=== PATIENT | male | born 1995 | race Caucasian/White ===

== ENCOUNTER 2017-04-03 15:31 | Emergency (ER) | payer OTHER ==
--- NOTE | 2017-04-03 19:02 | DIAGNOSTIC IMAGING REPORT ---
PROCEDURE: CT ABD/PELVIS WITH CONTRAST INDICATION: Hematemesis. Abdominal pain. Nausea and vomiting. Elevated white blood count 90 14,400). TECHNIQUE: 100 ml of Isovue 300 were injected intravenously and axial images were obtained of the entire abdomen and pelvis with sagittal and coronal reformations. COMPARISON: None. FINDINGS: ABDOMEN: Gallbladder is partially contracted with moderate to large amount of ingested material in the stomach. Liver, spleen, pancreas, kidneys, and aorta are normal. Bowel pattern is normal. Appendix is not clearly identified, but no evidence of inflammatory process. PELVIS: Pelvic structures are normal. No evidence of free fluid. IMPRESSION: 1. Moderate to large amount of ingested material in the stomach 2. Otherwise negative CT abdomen and pelvis. 3. Findings discussed with Dr. Raven Perez. All CT scans at this facility use dose modulation, iterative reconstruction, and/or weight-based dosing when appropriate to reduce radiation dose to as low as reasonably achievable.
--- NOTE | 2017-04-03 19:08 | ED NURSING NOTES ---
Clinical Report - Nurses [facility] [address] [place] [address] 04/03/2017 15:33 Patient: AKIKO CRAVEN II TRIAGE Triage time 1540. Acuity: LEVEL 3. Chief Complaint: ABDOMINAL PAIN, NAUSEA and VOMITING and (abd pain x 6 months, vomiting x 1 month- increased off and on over last 233k. has lost 25 pounds in 1 month.). 15:40. --15:51 Fifi Mercer R.N. 15:40 04/03/17. BP: 99/59. HR: 76. RR: 16. O2 saturation: 98%. Temp: 98.2 F. Pain level now: 9/10. Additional comments: 99/59 flat, 92/58 sitting, 90/54 standing / 76 flat, 86 sitting , 91 standing . --15:51 Fifi Mercer R.N. Weight: 48.5 kg stated. Height/Length: 69 inches Per Patient. BMI: 15.8. --15:51 Fifi Mercer R.N. Medications Dansatron yesterday. --15:47 Fifi Mercer R.N. None. --15:47 Fifi Mercer R.N. Allergies Penicillins. --15:47 Fifi Mercer R.N. History Arrived by private vehicle. Historian: patient. Accompanied by friend. No primary care physician. ( has seen bright red blood, and maroon colored blood with clots. has been feeling dizzy). He has had nausea and vomiting. He has had abdominal pain (low abd pain). ( denies bloody or black stools). SURGERY HX: No history of previous surgery. SOCIAL HX: Light tobacco smoker (cigarette)- less than 1/2 a pack per day. Occasional alcohol use. History of drug use: marijuana. --15:51 Fifi Mercer R.N. PROBLEMS: Back Pain. --15:46 Fifi Mercer R.N. ADDITIONAL SURGERIES: no known surgeries. Interventions ID band on patient. To treatment room. --15:51 Fifi Mercer R.N. PHYSICAL ASSESSMENT 15:40. Ambulatory to room. Patient gowned. GENERAL / NEURO / PSYCH: Alert. Oriented X 4. Appears in no acute distress. Appears anxious. RESPIRATORY: Respirations not labored. CVS: Capillary refill less than 2 seconds. GI / : The patient has had nausea. Emesis noted. Abdominal tenderness. No diarrhea. SKIN: Skin is warm and dry. --15:52 Fifi Mercer R.N. NURSING PROGRESS NOTES 15:40. Patient gowned. Head of bed elevated. Reassurance given. Patient identifiers checked. Call light placed in reach. Side rails up. Bed placed in lowest position. Patient ready for evaluation- chart flagged. --15:51 Fifi Mercer R.N. 16:30 04/03/2017 Site #1 started via IV in the right forearm with an 18g angiocath, with aseptic technique and good blood return; one attempt. Blood drawn: rainbow set. Labeled in the presence of the patient and sent to the lab. Saline lock flushed with 10 mL saline. --16:41 Fifi Mercer R.N. 16:30 04/03/2017 Started bag #1 1000 mL IV Fluids IV NS (Saline); at 1000 mL/hr over 1 hour(s) via site #1 via IV pump. --16:41 Fifi Mercer R.N. 16:31 04/03/2017 Dilaudid (HYDROmorphone HCl PF) IVP 0.5 mg given over 1 minute(s) via site #1. Sedative warning given to the patient. IV patency established. IV site checked: no pain, redness, or swelling. IV flushed thoroughly pre- and post-medication administration. IVP given by RN. --16:42 Fifi Mercer R.N. 16:33 04/03/2017 PROTONIX (Pantoprazole Sodium) IVP 40 mg given over 2 minute(s) via site #1. IV patency established. IV site checked: no pain, redness, or swelling. IV flushed thoroughly pre- and post-medication administration. IVP given by RN. --16:42 Fifi Mercer R.N. 16:34 04/03/2017 Zofran (Ondansetron HCl) IVP 4 mg given over 1 minute(s) via site #1. IV patency established. IV site checked: no pain, redness, or swelling. IV flushed thoroughly pre- and post-medication administration. IVP given by RN. --16:43 Fifi Mercer R.N. 17:25 04/03/2017 IV Fluids IV NS Bag Change: bag #1 infused. Total amount infused: 1000. STARTED bag #2 at 1000 mL/hr via IV pump. IV patency established. IV site checked: no pain, redness, or swelling. IV flushed thoroughly. --17:38 Fifi Mercer R.N. 17:28 04/03/2017 Zofran (Ondansetron HCl) IVP 4 mg given over 1 minute(s) via site #1. IV patency established. IV site checked: no pain, redness, or swelling. IV flushed thoroughly pre- and post-medication administration. IVP given by RN. --17:33 Fifi Mercer R.N. 16:30 IV started, bloods to lab , meds given. --17:34 Fifi Mercer R.N. 17:00 Pt resting quietly, girlfriend at bedside. --17:35 Fifi Mercer R.N. 17:20 Pt states nausea getting worse,asking for additional meds. --17:35 Fifi Mercer R.N. 17:29. Patient transported to [place] by stretcher with tech. --17:39 Fifi Mercer R.N. 17:50. Patient returned from CT by stretcher with tech. ([id number]). --18:03 Lulu Hernandez R.N. 18:03 04/03/17. BP: 96/58. HR: 87. RR: 18. O2 saturation: 100%. Pain level now 8/10. --18:04 Lulu Hernandez R.N. 18:45 04/03/17. BP: 98/56. HR: 89. RR: 16. O2 saturation: 99%. Temp: deferred. Pain level now: 8/10. Additional comments: ambulated to bathroom, steady on feet but states he still feels slightly dizzy . --18:57 Fifi Mercer R.N. --18:57 Fifi Mercer R.N. 18:49 04/03/2017 IV Fluids IV NS Discontinued: bag #2 infused. Total amount infused: 1000 mL. IV patency established. IV site checked: no pain, redness, or swelling. IV flushed thoroughly. (converted to saline lock). --18:59 Fifi Mercer R.N. 19:20 04/03/2017 Site #1 removed upon discharge. Bandage applied. --19:52 Fifi Mercer R.N. DISPOSITION / DISCHARGE 19:30. Condition at departure: improved and stable. No learning barriers present. Discharge instructions provided and reviewed with the patient. Reviewed medication(s) (protonix). Reviewed referrals (PCP tomorrow, for referral for EGD). Patient verbalized understanding. Written instructions provided in Somali. The patient was discharged home and accompanied by diplomatic interpreter. He left the Emergency Department ambulatory and via private vehicle. Swimming Pool Serviceperson driving. --19:52 Fifi Mercer R.N. 19:30 04/03/17. BP: 102/46. HR: 81. RR: 18. O2 saturation: 98%. Temp: deferred. Pain level now: 8/10. --19:52 Fifi Mercer R.N. Locked/Released at 04/03/2017 19:53 by Fifi Mercer R.N.
--- NOTE | 2017-04-03 19:08 | ED CLINICAL REPORT ---
Clinical Report - Physicians/Mid Levels [facility] [address] [place] [address] 04/03/2017 15:33 Patient: AKIKO CRAVEN II Time Seen: 15:37. Arrived- By private vehicle. Historian- patient. HISTORY OF PRESENT ILLNESS Chief Complaint: VOMITING. This started about 6 months ago, but worse over the past several weeks. Hematemesis started today. It is gone now. No recent travel. He has had nausea, vomiting, abdominal pain and constipation. He has had diarrhea (alternates with constipation). No black stools, bloody stools, flank pain, history of possible bad food exposure or known contact with a sick individual. Has not recently been camping or on antibiotics. The illness is described as moderate. Similar symptoms previously: ( atient states the symptoms have been going on since September of this year. However, his symptoms have gotten worse over the last month, and hematemesis just started today.). Recent medical care: ( Patient was seen about one month ago at [facility] for coughing up blood. He should states that a chest x-ray and blood work were done, and patient was then told to see his primary care physician. Patient states he does not have a primary care physician yet, because the physician he was referred to from [facility] is down in the [place] area and patient was appeared. He states he has no history of ulcers and has never had an endoscopy. He is not seen any other physician for the abdominal symptoms he has hadsince September.). Not recently seen/assessed. REVIEW OF SYSTEMS No fever, muscle aches, difficulty with urination, dizziness or sore throat. No cough, chest pain, difficulty breathing, excessive urination or skin rash. No jaundice, back pain, fainting episodes or blurred vision. The patient has had a headache. All systems otherwise negative, except as recorded above. PAST HISTORY Problems: Back Pain. Additional Surgeries: no known surgeries. Medications: None. Dansatron yesterday. Allergies: Penicillins. SOCIAL HISTORY Smoker- current status unknown. History of drug use: marijuana. No alcohol use. ADDITIONAL NOTES The nursing notes have been reviewed. PHYSICAL EXAM Vital Signs: 04/03/2017 15:40 BP: 99/59. HR: 76. RR: 16. O2 saturation: 98%. Temp: 98.2 F. Pain level now: 06/05. Have been reviewed. Appearance: Alert. Oriented X3. No acute distress. Eyes: Pupils equal, round and reactive to light. Eyes normal inspection. ENT: Nose normal. Neck: Normal inspection. CVS: Normal heart rate and rhythm. Heart sounds normal. Pulses normal. Respiratory: No respiratory distress. Breath sounds normal. Abdomen: Soft. Moderate tenderness in the epigastric area. No guarding or rebound tenderness. Back: Normal inspection. Skin: Skin warm and dry. Normal skin color. No rash. Normal skin turgor. Extremities: Extremities exhibit normal ROM. No lower extremity edema. Neuro: (grossly intact.). LABS, X-RAYS, AND EKG Abdominal CT: Normal study. Normal aorta. Normal liver, spleen, pancreas, gallbladder and adrenals. Normal kidneys. Bladder normal. Appendix normal. No mass. No free fluid. No bony lesion. No diverticulitis. Study type: abdomen and pelvis. Abdominal CT performed with IV contrast. The study was independently viewed by me, interpreted by the radiologist and contemporaneously by me and discussed with the radiologist. Prior studies were not available for comparison. Laboratory Tests: CBC w Diff: (URIAH: 04/03/2017 16:15) ( MsgRcvd 04/03/2017 17:04) Final results Test Result Flag Units (Reference) WHITE BLOOD COUNT 14.4 H K/uL (4.5-11.5) RED BLOOD COUNT 4.89 M/uL (4.50-5.90) HEMOGLOBIN 14.4 gm/dL (13.5-17.5) HEMATOCRIT 42.8 % (41.0-53.0) MEAN CELL VOLUME 88 fL (80-100) MEAN CORPUSCULAR HGB 30 pg (26-34) MEAN CORPUSCULAR HGB CONC 34 g/dL (31-37) RED CELL DISTRIBUTION WIDTH 12.7 % (11.6-14.8) PLATELET COUNT 255 K/uL (150-400) NEUTROPHIL % 85.6 H % (50-75) LYMPH % 8.1 L % (25-40) MONO % 5.1 % (3-14) EOSINOPHIL % 1.0 % (0-4) BASOPHIL % 0.2 % (0-2) PT with INR: (URIAH: 04/03/2017 16:15) ( [facility] 04/03/2017 16:48) Final results Test Result Flag Units (Reference) INR 1.0 (0.8-1.2) Low Intensity Therapy: INR 1.5-2.0 PT range 18.5-23.1Mod.Intensity Therapy: INR 2.0-3.0 PT range 23.1-31.5High Intensity Therapy: INR 2.5-3.5 PT range 27.4-35.5High Intensity Therapy 2: INR 3.0-4.0 PT range 31.5-39.3 CMP: (URIAH: 04/03/2017 16:15) ( [facility] 04/03/2017 17:01) Final results Test Result Flag Units (Reference) GLUCOSE 99 mg/dL (70-110) BUN 18 mg/dL (7-18) CREATININE 0.9 mg/dL (0.6-1.3) Estimated GFR >60 mL/min Estimated GFR- >60 mL/min Note: Persistent reduction over 3 months in eGFR<60 mL/min/1.73 m2 defines CKD. Patients with eGFR values>=60 mL/min/1.73 m2 may also have CKD if evidence ofpersistent proteinuria. Additional information may be foundat [email or web address]. SODIUM 142 mmol/L (136-145) POTASSIUM 4.0 mmol/L (3.5-5.1) CHLORIDE 103 mmol/L (98-107) CARBON DIOXIDE 27 mmol/L (21-32) CALCIUM 8.9 mg/dL (8.5-10.1) TOTAL PROTEIN 7.0 g/dL (6.4-8.2) ALBUMIN 4.0 g/dL (3.3-5.0) BILIRUBIN, TOTAL 0.3 mg/dL (0.0-1.0) ALKALINE PHOSPHATASE 47 U/L (46-116) AST (SGOT) 15 U/L (15-37) ALT (SGPT) 25 U/L (12-78) LIPASE 177 U/L (73-393) AMYLASE 54 U/L (25-115) . Pulse Oximetry: 04/03/2017 15:40 O2 saturation: 98%. (FIO2 - room air). Interpretation: normal. PROGRESS AND PROCEDURES Course of Care: Patient was given a liter of IV fluid, as well as a half milligram of Dilaudid for his headache, and a dose of Protonix. Patient at the time of my examination stated that he did not have any nausea currently. Patient was worked up with lab for studies and a CT scan, both of which were unremarkable. I did not find an emergent condition and I felt patient was stable for discharge home with outpatient follow-up. I did emphasize to the patient the importance of seeing his primary doctor to discuss getting an endoscopy. He is being given a prescription for Protonix. Patient and friend counseled in person regarding the patient's stable condition, test results, diagnosis and need for follow-up. Concerns were addressed. Old medical records reviewed. Disposition: Discharged. Condition: stable. CLINICAL IMPRESSION Acute gastritis INSTRUCTIONS Drink plenty of fluids. (Your labs and CT looked good today. There is no evidence of gastric cancer, or other abnormalities in your abdomen. It is very important, as you have previously been instructed, that you follow up with your primary care physician. You may have ulcers and may need to have an endoscopy done. This cannot be done in the emergency department, and you need to see your doctor to get this set up.). Warnings: GENERAL WARNINGS: Return or contact your physician immediately if your condition worsens or changes unexpectedly, if not improving as expected, or if other problems arise. Your Current Medications: CONTINUE TAKING THE FOLLOWING MEDICATIONS: Dansatron yesterday*. Prescription Medications: Zofran (orally disintegrating tablets) 4 mg: take 1-2 orally every 6 hours as needed for nausea. Dispense twenty-five (25). No refill. Substitution is permissible. Protonix 40 mg tablets: take 1 tablet orally every day. Dispense twenty-eight (28). No refill. Substitution is permissible. Understanding of the discharge instructions verbalized by patient. Follow-up with: [facility], [facility], [phone], #[facility], [place] [address] Follow up. Call for the next available appointment. Reason for referral: Establish care, follow up ED visit for ongoing abdominal pain and nausea. (Electronically signed by Raven Perez MD 04/05/2017 0:15)
--- NOTE | 2017-04-03 19:08 | ED NURSING NOTES ---
Clinical Report - Nurses [facility] [address] [place] [address] 04/03/2017 15:33 Patient: AKIKO CRAVEN II TRIAGE Triage time 1540. Acuity: LEVEL 3. Chief Complaint: ABDOMINAL PAIN, NAUSEA and VOMITING and (abd pain x 6 months, vomiting x 1 month- increased off and on over last 233k. has lost 25 pounds in 1 month.). 15:40. --15:51 Fifi Mercer R.N. 15:40 04/03/17. BP: 99/59. HR: 76. RR: 16. O2 saturation: 98%. Temp: 98.2 F. Pain level now: 9/10. Additional comments: 99/59 flat, 92/58 sitting, 90/54 standing / 76 flat, 86 sitting , 91 standing . --15:51 Fifi Mercer R.N. Weight: 48.5 kg stated. Height/Length: 69 inches Per Patient. BMI: 15.8. --15:51 Fifi Mercer R.N. Medications Dansatron yesterday. --15:47 Fifi Mercer R.N. None. --15:47 Fifi Mercer R.N. Allergies Penicillins. --15:47 Fifi Mercer R.N. History Arrived by private vehicle. Historian: patient. Accompanied by friend. No primary care physician. ( has seen bright red blood, and maroon colored blood with clots. has been feeling dizzy). He has had nausea and vomiting. He has had abdominal pain (low abd pain). ( denies bloody or black stools). SURGERY HX: No history of previous surgery. SOCIAL HX: Light tobacco smoker (cigarette)- less than 1/2 a pack per day. Occasional alcohol use. History of drug use: marijuana. --15:51 Fifi Mercer R.N. PROBLEMS: Back Pain. --15:46 Fifi Mercer R.N. ADDITIONAL SURGERIES: no known surgeries. Interventions ID band on patient. To treatment room. --15:51 Ffii Mercer R.N. PHYSICAL ASSESSMENT 15:40. Ambulatory to room. Patient gowned. GENERAL / NEURO / PSYCH: Alert. Oriented X 4. Appears in no acute distress. Appears anxious. RESPIRATORY: Respirations not labored. CVS: Capillary refill less than 2 seconds. GI / : The patient has had nausea. Emesis noted. Abdominal tenderness. No diarrhea. SKIN: Skin is warm and dry. --15:52 Fifi Mercer R.N. NURSING PROGRESS NOTES 15:40. Patient gowned. Head of bed elevated. Reassurance given. Patient identifiers checked. Call light placed in reach. Side rails up. Bed placed in lowest position. Patient ready for evaluation- chart flagged. --15:51 Fifi Mercer R.N. 16:30 04/03/2017 Site #1 started via IV in the right forearm with an 18g angiocath, with aseptic technique and good blood return; one attempt. Blood drawn: rainbow set. Labeled in the presence of the patient and sent to the lab. Saline lock flushed with 10 mL saline. --16:41 Fifi Mercer R.N. 16:30 04/03/2017 Started bag #1 1000 mL IV Fluids IV NS (Saline); at 1000 mL/hr over 1 hour(s) via site #1 via IV pump. --16:41 Fifi Mercer R.N. 16:31 04/03/2017 Dilaudid (HYDROmorphone HCl PF) IVP 0.5 mg given over 1 minute(s) via site #1. Sedative warning given to the patient. IV patency established. IV site checked: no pain, redness, or swelling. IV flushed thoroughly pre- and post-medication administration. IVP given by RN. --16:42 Fifi Mercer R.N. 16:33 04/03/2017 PROTONIX (Pantoprazole Sodium) IVP 40 mg given over 2 minute(s) via site #1. IV patency established. IV site checked: no pain, redness, or swelling. IV flushed thoroughly pre- and post-medication administration. IVP given by RN. --16:42 Fifi Mercer R.N. 16:34 04/03/2017 Zofran (Ondansetron HCl) IVP 4 mg given over 1 minute(s) via site #1. IV patency established. IV site checked: no pain, redness, or swelling. IV flushed thoroughly pre- and post-medication administration. IVP given by RN. --16:43 Fifi Mercer R.N. 17:25 04/03/2017 IV Fluids IV NS Bag Change: bag #1 infused. Total amount infused: 1000. STARTED bag #2 at 1000 mL/hr via IV pump. IV patency established. IV site checked: no pain, redness, or swelling. IV flushed thoroughly. --17:38 Fifi Mercer R.N. 17:28 04/03/2017 Zofran (Ondansetron HCl) IVP 4 mg given over 1 minute(s) via site #1. IV patency established. IV site checked: no pain, redness, or swelling. IV flushed thoroughly pre- and post-medication administration. IVP given by RN. --17:33 Fifi Mercer R.N. 16:30 IV started, bloods to lab , meds given. --17:34 Fifi Mercer R.N. 17:00 Pt resting quietly, girlfriend at bedside. --17:35 Fifi Mercer R.N. 17:20 Pt states nausea getting worse,asking for additional meds. --17:35 Fifi Mercer R.N. 17:29. Patient transported to OR by stretcher with tech. --17:39 Fifi Mercer R.N. 17:50. Patient returned from CT by stretcher with tech. ([id number]). --18:03 Lulu Hernandez R.N. 18:03 04/03/17. BP: 96/58. HR: 87. RR: 18. O2 saturation: 100%. Pain level now 8/10. --18:04 Lulu Hernandez R.N. 18:45 04/03/17. BP: 98/56. HR: 89. RR: 16. O2 saturation: 99%. Temp: deferred. Pain level now: 8/10. Additional comments: ambulated to bathroom, steady on feet but states he still feels slightly dizzy . --18:57 Fifi Mercer R.N. --18:57 Fifi Mercer R.N. 18:49 04/03/2017 IV Fluids IV NS Discontinued: bag #2 infused. Total amount infused: 1000 mL. IV patency established. IV site checked: no pain, redness, or swelling. IV flushed thoroughly. (converted to saline lock). --18:59 Fifi Mercer R.N. 19:20 04/03/2017 Site #1 removed upon discharge. Bandage applied. --19:52 Fifi Mercer R.N. DISPOSITION / DISCHARGE 19:30. Condition at departure: improved and stable. No learning barriers present. Discharge instructions provided and reviewed with the patient. Reviewed medication(s) (protonix). Reviewed referrals (PCP tomorrow, for referral for EGD). Patient verbalized understanding. Written instructions provided in Singaporean. The patient was discharged home and accompanied by ripper operator. He left the Emergency Department ambulatory and via private vehicle. Shipwright Supervisor driving. --19:52 Fifi Mercer R.N. 19:30 04/03/17. BP: 102/46. HR: 81. RR: 18. O2 saturation: 98%. Temp: deferred. Pain level now: 8/10. --19:52 Fifi Mercer R.N. Locked/Released at 04/03/2017 19:53 by Fifi Mercer R.N.
--- NOTE | 2017-04-03 19:08 | ED CLINICAL REPORT ---
Clinical Report - Physicians/Mid Levels [facility] [address] [place] [address] 04/03/2017 15:33 Patient: AKIKO CRAVEN II Time Seen: 15:37. Arrived- By private vehicle. Historian- patient. HISTORY OF PRESENT ILLNESS Chief Complaint: VOMITING. This started about 6 months ago, but worse over the past several weeks. Hematemesis started today. It is gone now. No recent travel. He has had nausea, vomiting, abdominal pain and constipation. He has had diarrhea (alternates with constipation). No black stools, bloody stools, flank pain, history of possible bad food exposure or known contact with a sick individual. Has not recently been camping or on antibiotics. The illness is described as moderate. Similar symptoms previously: ( atient states the symptoms have been going on since September of this year. However, his symptoms have gotten worse over the last month, and hematemesis just started today.). Recent medical care: ( Patient was seen about one month ago at [facility] for coughing up blood. He should states that a chest x-ray and blood work were done, and patient was then told to see his primary care physician. Patient states he does not have a primary care physician yet, because the physician he was referred to from [facility] is down in the [place] area and patient was appeared. He states he has no history of ulcers and has never had an endoscopy. He is not seen any other physician for the abdominal symptoms he has hadsince September.). Not recently seen/assessed. REVIEW OF SYSTEMS No fever, muscle aches, difficulty with urination, dizziness or sore throat. No cough, chest pain, difficulty breathing, excessive urination or skin rash. No jaundice, back pain, fainting episodes or blurred vision. The patient has had a headache. All systems otherwise negative, except as recorded above. PAST HISTORY Problems: Back Pain. Additional Surgeries: no known surgeries. Medications: None. Dansatron yesterday. Allergies: Penicillins. SOCIAL HISTORY Smoker- current status unknown. History of drug use: marijuana. No alcohol use. ADDITIONAL NOTES The nursing notes have been reviewed. PHYSICAL EXAM Vital Signs: 04/03/2017 15:40 BP: 99/59. HR: 76. RR: 16. O2 saturation: 98%. Temp: 98.2 F. Pain level now: 06/05. Have been reviewed. Appearance: Alert. Oriented X3. No acute distress. Eyes: Pupils equal, round and reactive to light. Eyes normal inspection. ENT: Nose normal. Neck: Normal inspection. CVS: Normal heart rate and rhythm. Heart sounds normal. Pulses normal. Respiratory: No respiratory distress. Breath sounds normal. Abdomen: Soft. Moderate tenderness in the epigastric area. No guarding or rebound tenderness. Back: Normal inspection. Skin: Skin warm and dry. Normal skin color. No rash. Normal skin turgor. Extremities: Extremities exhibit normal ROM. No lower extremity edema. Neuro: (grossly intact.). LABS, X-RAYS, AND EKG Abdominal CT: Normal study. Normal aorta. Normal liver, spleen, pancreas, gallbladder and adrenals. Normal kidneys. Bladder normal. Appendix normal. No mass. No free fluid. No bony lesion. No diverticulitis. Study type: abdomen and pelvis. Abdominal CT performed with IV contrast. The study was independently viewed by me, interpreted by the radiologist and contemporaneously by me and discussed with the radiologist. Prior studies were not available for comparison. Laboratory Tests: CBC w Diff: (URIAH: 04/03/2017 16:15) ( MsgRcvd 04/03/2017 17:04) Final results Test Result Flag Units (Reference) WHITE BLOOD COUNT 14.4 H K/uL (4.5-11.5) RED BLOOD COUNT 4.89 M/uL (4.50-5.90) HEMOGLOBIN 14.4 gm/dL (13.5-17.5) HEMATOCRIT 42.8 % (41.0-53.0) MEAN CELL VOLUME 88 fL (80-100) MEAN CORPUSCULAR HGB 30 pg (26-34) MEAN CORPUSCULAR HGB CONC 34 g/dL (31-37) RED CELL DISTRIBUTION WIDTH 12.7 % (11.6-14.8) PLATELET COUNT 255 K/uL (150-400) NEUTROPHIL % 85.6 H % (50-75) LYMPH % 8.1 L % (25-40) MONO % 5.1 % (3-14) EOSINOPHIL % 1.0 % (0-4) BASOPHIL % 0.2 % (0-2) PT with INR: (URIAH: 04/03/2017 16:15) ( [facility] 04/03/2017 16:48) Final results Test Result Flag Units (Reference) INR 1.0 (0.8-1.2) Low Intensity Therapy: INR 1.5-2.0 PT range 18.5-23.1Mod.Intensity Therapy: INR 2.0-3.0 PT range 23.1-31.5High Intensity Therapy: INR 2.5-3.5 PT range 27.4-35.5High Intensity Therapy 2: INR 3.0-4.0 PT range 31.5-39.3 CMP: (URIAH: 04/03/2017 16:15) ( [facility] 04[facility]03[facility] 17[facility]01) Final results Test Result Flag Units (Reference) GLUCOSE 99 mg/dL (70-110) BUN 18 mg/dL (7-18) CREATININE 0.9 mg/dL (0.6-1.3) Estimated GFR >60 mL/min Estimated GFR- >60 mL/min Note: Persistent reduction over 3 months in eGFR<60 mL/min/1.73 m2 defines CKD. Patients with eGFR values>=60 mL/min/1.73 m2 may also have CKD if evidence ofpersistent proteinuria. Additional information may be foundat www.kidney.org. SODIUM 142 mmol/L (136-145) POTASSIUM 4.0 mmol/L (3.5-5.1) CHLORIDE 103 mmol/L (98-107) CARBON DIOXIDE 27 mmol/L (21-32) CALCIUM 8.9 mg/dL (8.5-10.1) TOTAL PROTEIN 7.0 g/dL (6.4-8.2) ALBUMIN 4.0 g/dL (3.3-5.0) BILIRUBIN, TOTAL 0.3 mg/dL (0.0-1.0) ALKALINE PHOSPHATASE 47 U/L (46-116) AST (SGOT) 15 U/L (15-37) ALT (SGPT) 25 U/L (12-78) LIPASE 177 U/L (73-393) AMYLASE 54 U/L (25-115) . Pulse Oximetry: 04/03/2017 15:40 O2 saturation: 98%. (FIO2 - room air). Interpretation: normal. PROGRESS AND PROCEDURES Course of Care: Patient was given a liter of IV fluid, as well as a half milligram of Dilaudid for his headache, and a dose of Protonix. Patient at the time of my examination stated that he did not have any nausea currently. Patient was worked up with lab for studies and a CT scan, both of which were unremarkable. I did not find an emergent condition and I felt patient was stable for discharge home with outpatient follow-up. I did emphasize to the patient the importance of seeing his primary doctor to discuss getting an endoscopy. He is being given a prescription for Protonix. Patient and friend counseled in person regarding the patient's stable condition, test results, diagnosis and need for follow-up. Concerns were addressed. Old medical records reviewed. Disposition: Discharged. Condition: stable. CLINICAL IMPRESSION Acute gastritis INSTRUCTIONS Drink plenty of fluids. (Your labs and CT looked good today. There is no evidence of gastric cancer, or other abnormalities in your abdomen. It is very important, as you have previously been instructed, that you follow up with your primary care physician. You may have ulcers and may need to have an endoscopy done. This cannot be done in the emergency department, and you need to see your doctor to get this set up.). Warnings: GENERAL WARNINGS: Return or contact your physician immediately if your condition worsens or changes unexpectedly, if not improving as expected, or if other problems arise. Your Current Medications: CONTINUE TAKING THE FOLLOWING MEDICATIONS: Dansatron yesterday*. Prescription Medications: Zofran (orally disintegrating tablets) 4 mg: take 1-2 orally every 6 hours as needed for nausea. Dispense twenty-five (25). No refill. Substitution is permissible. Protonix 40 mg tablets: take 1 tablet orally every day. Dispense twenty-eight (28). No refill. Substitution is permissible. Understanding of the discharge instructions verbalized by patient. Follow-up with: [facility], [facility], [phone], #[facility], [place] [address] Follow up. Call for the next available appointment. Reason for referral: Establish care, follow up ED visit for ongoing abdominal pain and nausea. (Electronically signed by Raven Perez MD 04/05/2017 0:15)
--- NOTE | 2017-04-03 19:09 | ED ORDER SUMMARY ---
..... Patient: AKIKO CRAVEN II OrderSheet [facility] VisitID: [id number] [place] [address] 21y, M Registration Date/Time: 04/03/2017 ORDER SHEET Weight: 48.5 kg (stated) Allergies: Penicillins GENERAL ORDERS: CBC w Diff Urgent (16:17 04/03/2017 Mendez HERNANDEZ) (Ack 16:19 Nissa) (16:22 DDean R.N.) CMP Urgent (16:17 04/03/2017 Mendez HERNANDEZ) (Ack 16:19 Nissa) (16:22 DDean R.N.) PT with INR Urgent (16:17 04/03/2017 Mendez HERNANDEZ) (Ack 16:19 Nissa) (16:22 DDean R.N.) Lipase Urgent (16:17 04/03/2017 Mendez HERNANDEZ) (Ack 16:19 Nissa) (16:22 DDean R.N.) Amylase Urgent (16:17 04/03/2017 Mendez HERNANDEZ) (Ack 16:19 Nissa) (16:22 DDean R.N.) CT Abd/Pel w Cont (No) (normal) Urgent (17:05 04/03/2017 Mendez HERNANDEZ) (Ack 17:06 Nissa) (18:28 [place]) - (hang bag #2 1000 ns AT 1000CC/HR) (17:38 04/03/2017 DDean R.N. per protocol) (17:38 DDean R.N.) MEDICATION ORDERS: IV FLUIDS: IV NS : initial bolus 1000 mL (1000 mL/hr), then none - (NOW) (16:16 04/03/2017 Mendez HERNANDEZ) (Ack 16:23 DDean R.N.) (16:41 DDean R.N.) Dilaudid IV 0.5 mg (HIGH ALERT MEDICATION, NOW) (16:17 04/03/2017 Mendez HERNANDEZ) (Ack 16:23 DDean R.N.) (16:42 DDean R.N.) Protonix IVP 40mg 40 mg (Mix in NS 10ml over 2min) (16:17 04/03/2017 Mendez HERNANDEZ) (Ack 16:23 DDean R.N.) (16:42 DDean R.N.) Zofran IV 4 mg (NOW) (16:42 04/03/2017 DDean R.N. per protocol) (16:43 DDean R.N.) Zofran IV 4 mg (NOW) (17:32 04/03/2017 DDean R.N. per protocol) (17:33 DDean R.N.) ORDER SHEET NOTES: [Electronically signed by Fifi Mercer R.N. (19:53 04/03/2017)] [Electronically signed by Raven Perez MD (00:15 04/05/2017)] [Electronically locked/signed by Fifi Mercer R.N. (19:53 04/03/2017)]
--- NOTE | 2017-04-03 19:09 | ED ORDER SUMMARY ---
..... Patient: AKIKO CRAVEN II OrderSheet [facility] VisitID: [id number] [place] [address] 21y, M Registration Date/Time: 04/03/2017 ORDER SHEET Weight: 48.5 kg (stated) Allergies: Penicillins GENERAL ORDERS: CBC w Diff Urgent (16:17 04/03/2017 Mendez HERNANDEZ) (Ack 16:19 Nissa) (16:22 DDean R.N.) CMP Urgent (16:17 04/03/2017 Mendez HERNANDEZ) (Ack 16:19 Nissa) (16:22 DDean R.N.) PT with INR Urgent (16:17 04/03/2017 Mendez HERNANDEZ) (Ack 16:19 Nissa) (16:22 DDean R.N.) Lipase Urgent (16:17 04/03/2017 Mendez HERNANDEZ) (Ack 16:19 Nissa) (16:22 DDean R.N.) Amylase Urgent (16:17 04/03/2017 Mendez HERNANDEZ) (Ack 16:19 Nissa) (16:22 DDean R.N.) CT Abd/Pel w Cont (No) (normal) Urgent (17:05 04/03/2017 Mendez HERNANDEZ) (Ack 17:06 Nissa) (18:28 [place]) - (hang bag #2 1000 ns AT 1000CC/HR) (17:38 04/03/2017 DDean R.N. per protocol) (17:38 DDean R.N.) MEDICATION ORDERS: IV FLUIDS: IV NS : initial bolus 1000 mL (1000 mL/hr), then none - (NOW) (16:16 04/03/2017 Mendez HERNANDEZ) (Ack 16:23 DDean R.N.) (16:41 DDean R.N.) Dilaudid IV 0.5 mg (HIGH ALERT MEDICATION, NOW) (16:17 04/03/2017 Mendez HERNANDEZ) (Ack 16:23 DDean R.N.) (16:42 DDean R.N.) Protonix IVP 40mg 40 mg (Mix in NS 10ml over 2min) (16:17 04/03/2017 Mendez HERNANDEZ) (Ack 16:23 DDean R.N.) (16:42 DDean R.N.) Zofran IV 4 mg (NOW) (16:42 04/03/2017 DDean R.N. per protocol) (16:43 DDean R.N.) Zofran IV 4 mg (NOW) (17:32 04/03/2017 DDean R.N. per protocol) (17:33 DDean R.N.) ORDER SHEET NOTES: [Electronically signed by Fifi Mercer R.N. (19:53 04/03/2017)] [Electronically signed by Raven Perez MD (00:15 04/05/2017)] [Electronically locked/signed by Fifi Mercer R.N. (19:53 04/03/2017)]
--- NOTE | 2017-04-05 00:15 | ED DISCHARGE INSTRUCTIONS ---
Patient: AKIKO CRAVEN II General Instructions [facility] VisitID: [id number] [place] [place] [id number] 21y, M Registration Date/Time: 04/03/2017 Acute gastritis INSTRUCTIONS Drink plenty of fluids. (Your labs and CT looked good today. There is no evidence of gastric cancer, or other abnormalities in your abdomen. It is very important, as you have previously been instructed, that you follow up with your primary care physician. You may have ulcers and may need to have an endoscopy done. This cannot be done in the emergency department, and you need to see your doctor to get this set up.). Warnings: GENERAL WARNINGS: Return or contact your physician immediately if your condition worsens or changes unexpectedly, if not improving as expected, or if other problems arise. Your Current Medications: CONTINUE TAKING THE FOLLOWING MEDICATIONS: Dansatron yesterday*. Prescription Medications: Zofran (orally disintegrating tablets) 4 mg: take 1-2 orally every 6 hours as needed for nausea. Dispense twenty-five (25). No refill. Substitution is permissible. Protonix 40 mg tablets: take 1 tablet orally every day. Dispense twenty-eight (28). No refill. Substitution is permissible. Understanding of the discharge instructions verbalized by patient. Follow-up with: [facility], [facility], , [address] [place] [address], [address], [place] [address] Follow up. Call for the next available appointment. Reason for referral: Establish care, follow up ED visit for ongoing abdominal pain and nausea. ADDITIONAL INFORMATION Gastritis Versus Ulcer (No Antibiotic Tx) The symptoms of gastritis and peptic ulcer are very similar. Both can cause a dull ache or burning pain in the upper abdomen. Other symptoms include nausea, vomiting, loss of appetite, and belching or bloating. Blood in the vomit or stools (red or black) is a sign of bleeding in the stomach. This requires immediate medical attention. A Peptic Ulcer is an open sore in the lining of the stomach or duodenum (upper intestine). The most common cause of peptic ulcer disease is a bacterial infection (H pylori) in the stomach. Another common cause is taking anti-inflammatory medications (such as ibuprofen, prednisone, and aspirin). Gastritis is an irritation of the stomach lining. It can be acute (recent) or chronic (lasting a long time). Gastritis can be caused by overuse of alcohol or anti-inflammatory medications (such as aspirin, ibuprofen, prednisone). H pyloriinfection can also cause chronic gastritis. Tests for H pyloriare used to screen for bacterial infection. If no infection is found, ulcer and gastritis can be treated by stopping the cause, such as anti-inflammatory medications, alcohol, caffeine, and tobacco, and treating with antacids plus an acid jose medication. If H pylori infection is found, antibiotics will be prescribed along with an acid jose. Persons 55 years and older may undergo other tests before treatment is started. Two common tests are used to evaluate your symptoms. An upper GI series is an x-ray taken after you drink a chalky liquid called barium. This coats the stomach and allows an ulcer to show up on the x-ray. Another test is called endoscopy during which a long thin tube called an endoscope is passed down your throat to the stomach. A camera at the end of the scope allows the doctor to view inside the stomach to check the cause of your symptoms. Home Care: Take the prescribed acid jose medication for the full course of treatment even if you begin to feel better sooner. This medication can take up to several days to fully control your symptoms. If you cant afford the prescribed medication, you can try opdt-skk-plwbygd acid blockers, such as Pepcid AC, Tagamet, Zantac, or Aciphex. If these do not relieve your symptoms, a stronger acid-jose can be tried, such as Prilosec OTC. If you have been prescribed an antibiotic to treat H pyloriinfection, finish the full course of medication. Do so even if you begin to feel better sooner. If you stop the medication too soon, the infection can return and be harder to treat. You can use antacids, such as Tums, Rolaids, Mylanta, or Maalox, for pain. This will be useful the first few days after starting acid blockers when the blockers havent started working yet. Follow the directions on the label. Liquid antacids may work better than tablets. Note that antacids can interfere with absorption of certain medications. Specifically, do not take Tagamet (cimetidine), Zantac (ranitidine), or Carafate (sucralfate) within 1 hour of taking an antacid. Talk with your pharmacist if you have any questions. Although foods do not cause an ulcer, symptoms can be worsened by certain foods. Limit or avoid fatty, fried, and spicy foods, as well as coffee, chocolate, mint, and foods with high acid content such as tomatoes and citrus fruit and juices (orange, grapefruit, lemon). Avoid alcohol, caffeine, and tobacco, which can delay healing. Avoid aspirin and anti-inflammatory medications such as ibuprofen (Advil, Motrin) and naproxen (Naprosyn, Aleve). Acetaminophen (Tylenol) is safe to use. Do not take more than the amount listed on the label. Follow Up with your doctor or as advised. Further testing may be needed. If you do not begin to improve over the next 4 days, contact your doctor. If you had tests, youll be notified of any new findings that affect your care. Get Prompt Medical Attention if any of the following occur: Stomach pain gets worse or moves to the lower right abdomen (appendix area) Chest pain appears or gets worse, or spreads to the back, neck, shoulder, or arm Frequent vomiting (cant keep down liquids) Blood in the stool or vomit (red or black in color) Feeling weak or dizzy, fainting, or trouble breathing Fever of 100.4F (38C) or higher, or as directed by your healthcare provider GI Bleeding (Upper), Stable There are signs that you have bled from your upper intestinal tract (esophagus, stomach or upper intestine). This may be due to: Repeated vomiting which may cause a small tear in the lining of the esophagus, An ulcer in the stomach or duodenum (upper intestine) Severe gastritis (from use of alcohol, aspirin or anti-inflammatory drugs) Esophageal varices (enlarged veins in the esophagus) may also cause bleeding like this. Your exam today showed that you have not lost a large amount of blood and your condition is stable. Bleeding from the upper GI tract causes the stool to turn black. Home Care: 1) If your bleeding is due to an ulcer or gastritis, an acid-blocking medicine will help. Unless an acid jose was prescribed (or if you cannot afford one that was prescribed), you may use pfrj-xee-qpjuijg drugs such as Pepcid AC (famotidine), Tagamet (cimetidine) or Zantac (ranitidine). These begin to work within a few hours. Prilosec OTC (omeprazole) is a new type of acid jose which may be more effective. It takes up to four days for its full effect. You may get additional short-term relief by taking antacids (Mylanta or Maalox). It should be taken one hour after meals and at bedtime. Do not take Tagamet (cimetidine), Zantac (ranitidine) or Carafate (sucralfate) within one hour of an antacid. 2) Avoid factors which increase stomach acid. These include cigarettes, caffeine (coffee, beverly, teas) and stress. 3) Avoid substances that irritate your stomach. These include aspirin and anti-inflammatory drugs (such as ibuprofen, Advil, Motrin, naproxen, Aleve, Naprosyn), alcohol and spicy foods. Prednisone and related prescription drugs can cause an ulcer. Discuss with your doctor if you are taking these. 4) Take any prescribed medicine as directed to promote healing. 5) If alcohol is a possible cause of your GI bleeding, it is urgent that you talk with your doctor about ways to help you quit. Follow Up with your doctor as advised. Get Prompt Medical Attention if any of the following occur: -- Stomach pain worsens -- Pain appears, worsens or spreads to the neck, back, shoulder or arm -- You vomit blood (red or black color) -- You feel weak or dizzy, or you faint -- You have fever or abdominal swelling -- Red blood in the stool You have been given the following additional information: Gastritis Vs. Ulcer GI Bleed, Upper (Stable) (Electronically signed by Raven Perez MD 04/05/2017 0:15)
--- NOTE | 2017-04-05 00:16 | ED MAR SUMMARY ---
..... Medication Administration Record [facility] [address] [place] [address] Patient: AKIKO CRAVEN Visit ID: [id number] 21y, M Weight: 48.5 kg Height/Length: 69 in BMI: 15.8 ALLERGIES: Penicillins Start 16:30 04/03/2017 Fifi Mercer R.N., Stop 18:49 04/03/2017 Fifi Mercer R.N. Medication Administered: IV NS (SALINE), Dose: IV Fluids over 1 hour(s), Rate: 1000 mL/hr, Dispensed: 1000 mL bag, Site: #1 right forearm. Medication Ordered: IV NS : initial bolus 1000 mL (1000 mL/hr), then none - (NOW). Given 16:31 04/03/2017 Fifi Mercer R.N. Medication Administered: DILAUDID [IVP] (HYDROMORPHONE HCL PF), Dose: 0.5 mg IVP over 1 minute(s), Site: #1 right forearm. Medication Ordered: Dilaudid IV 0.5 mg (HIGH ALERT MEDICATION, NOW). Given 16:33 04/03/2017 Fifi Mercer R.N. Medication Administered: PROTONIX [IVP] (PANTOPRAZOLE SODIUM), Dose: 40 mg IVP over 2 minute(s), Site: #1 right forearm. Medication Ordered: Protonix IVP 40mg 40 mg (Mix in NS 10ml over 2min). Given 16:34 04/03/2017 Fifi Mercer R.N. Medication Administered: ZOFRAN [IVP] (ONDANSETRON HCL), Dose: 4 mg IVP over 1 minute(s), Site: #1 right forearm. Medication Ordered: Zofran IV 4 mg (NOW). Given 17:28 04/03/2017 Fifi Mercer R.N. Medication Administered: ZOFRAN [IVP] (ONDANSETRON HCL), Dose: 4 mg IVP over 1 minute(s), Site: #1 right forearm. Medication Ordered: Zofran IV 4 mg (NOW).
--- NOTE | 2017-04-05 00:16 | ED MED RECONCILIATION SUMMARY ---
Patient: AKIKO CRAVEN II Medication Reconciliation Report [facility] VisitID: [id number] [address] [place] [address] 21y, M Registration Date/Time: 04/03/2017 Weight: 48.5 kg Height/Length: 69 in. BMI: 15.8 ALLERGIES: Penicillins The patient's Home Medications are listed below: CONTINUE TAKING THE FOLLOWING MEDICATIONS: Dansatron yesterday The source(s) of the original Home Medication information: Not obtained. The following Medications were given to the patient in the Emergency Department: IV NS IV Fluids bolus 0, then 1000 mL/hr, administered: 04/03/2017 4:30:00 PM Dilaudid [IVP] IVP 0.5 mg, administered: 04/03/2017 4:31:00 PM PROTONIX [IVP] IVP 40 mg, administered: 04/03/2017 4:33:00 PM Zofran [IVP] IVP 4 mg, administered: 04/03/2017 4:34:00 PM Zofran [IVP] IVP 4 mg, administered: 04/03/2017 5:28:00 PM The following Medications were prescribed to the patient: Zofran (orally disintegrating tablets) 4 mg: take 1-2 orally every 6 hours as needed for nausea. Dispense twenty-five (25). No refill. Substitution is permissible. -- Raven Perez MD Protonix 40 mg tablets: take 1 tablet orally every day. Dispense twenty-eight (28). No refill. Substitution is permissible. -- Raven Perez MD
--- NOTE | 2017-04-05 00:16 | ED MED RECONCILIATION SUMMARY ---
Patient: AKIKO CRAVEN II Medication Reconciliation Report [facility] VisitID: [id number] [address] [place] [address] 21y, M Registration Date/Time: 04/03/2017 Weight: 48.5 kg Height/Length: 69 in. BMI: 15.8 ALLERGIES: Penicillins The patient's Home Medications are listed below: CONTINUE TAKING THE FOLLOWING MEDICATIONS: Dansatron yesterday The source(s) of the original Home Medication information: Not obtained. The following Medications were given to the patient in the Emergency Department: IV NS IV Fluids bolus 0, then 1000 mL/hr, administered: 04/03/2017 4:30:00 PM Dilaudid [IVP] IVP 0.5 mg, administered: 04/03/2017 4:31:00 PM PROTONIX [IVP] IVP 40 mg, administered: 04/03/2017 4:33:00 PM Zofran [IVP] IVP 4 mg, administered: 04/03/2017 4:34:00 PM Zofran [IVP] IVP 4 mg, administered: 04/03/2017 5:28:00 PM The following Medications were prescribed to the patient: Zofran (orally disintegrating tablets) 4 mg: take 1-2 orally every 6 hours as needed for nausea. Dispense twenty-five (25). No refill. Substitution is permissible. -- Raven Perez MD Protonix 40 mg tablets: take 1 tablet orally every day. Dispense twenty-eight (28). No refill. Substitution is permissible. -- Raven Perez MD
--- NOTE | 2017-04-05 00:16 | ED MAR SUMMARY ---
..... Medication Administration Record [facility] [address] [place] [address] Patient: AKIKO CRAVEN Visit ID: [id number] 21y, M Weight: 48.5 kg Height/Length: 69 in BMI: 15.8 ALLERGIES: Penicillins Start 16:30 04/03/2017 Fifi Mercer R.N., Stop 18:49 04/03/2017 Fifi Mercer R.N. Medication Administered: IV NS (SALINE), Dose: IV Fluids over 1 hour(s), Rate: 1000 mL/hr, Dispensed: 1000 mL bag, Site: #1 right forearm. Medication Ordered: IV NS : initial bolus 1000 mL (1000 mL/hr), then none - (NOW). Given 16:31 04/03/2017 Fifi Mercer R.N. Medication Administered: DILAUDID [IVP] (HYDROMORPHONE HCL PF), Dose: 0.5 mg IVP over 1 minute(s), Site: #1 right forearm. Medication Ordered: Dilaudid IV 0.5 mg (HIGH ALERT MEDICATION, NOW). Given 16:33 04/03/2017 Fifi Mercer R.N. Medication Administered: PROTONIX [IVP] (PANTOPRAZOLE SODIUM), Dose: 40 mg IVP over 2 minute(s), Site: #1 right forearm. Medication Ordered: Protonix IVP 40mg 40 mg (Mix in NS 10ml over 2min). Given 16:34 04/03/2017 Fifi Mercer R.N. Medication Administered: ZOFRAN [IVP] (ONDANSETRON HCL), Dose: 4 mg IVP over 1 minute(s), Site: #1 right forearm. Medication Ordered: Zofran IV 4 mg (NOW). Given 17:28 04/03/2017 Fifi Mercer R.N. Medication Administered: ZOFRAN [IVP] (ONDANSETRON HCL), Dose: 4 mg IVP over 1 minute(s), Site: #1 right forearm. Medication Ordered: Zofran IV 4 mg (NOW).
== END 2017-04-03 19:30 | disposition home or self-care (01) ==
LOC: ED SRH 15:31
DX: K29.00 Acute gastritis without bleeding (principal); Z88.0 Allergy status to penicillin
CPT/HCPCS: 90100; 92235; 92530; 94060; 95059